=== PATIENT | male | born 1990 | race Caucasian/White ===

== ENCOUNTER 2017-12-10 10:00 | Outpatient (CLI) | payer OTHER ==
--- NOTE | 2017-12-10 13:35 | MRI ---
EXAM: MRI right ankle/hind-foot without contrast. HISTORY: Right ankle pain. Fractured fibula 05/30/2017. No surgery.. TECHNIQUE: Using a local extremity coil on a high field strength magnet multiplanar multisequence ma gnet resonance imaging performed of the right hind to midfoot without intravenous or intra-articular gadolinium contrast. COMPARISON: Three-view plain film examination right ankle 06/29/2017. Three-view plain film examina tion right foot 06/29/2017. FINDINGS: The alignment of the right hind to midfoot shows no dislocation or joint subluxations. In tact Lisfranc ligament fibers. Ankle mortise symmetric. Talar dome within normal limit in morpholog y. There remains a well-defined coronal oblique fracture of the distal right fibula over the metaphy sis with extension into the ankle mortise. Near anatomic alignment. Associated bone marrow edema/re modeling persists. Associated injury to the anterior tibiofibular ligament with the posterior tibiof ibular ligament and transverse ligament/tibial slip intact. Distal interosseous membrane partially vi sualized and intact. Preservation of fat within the sinus tarsi. Low-lying soleus. Distal Achilles tendon intact with so me mild distal Achilles tendinosis/peritendinitis. The visualized plantar fascia intact and of nimco l signal intensity and morphology. Anterior compartment tendons intact. Within the lateral compartment both the peroneus brevis and peroneus longus tendons intact with some tendinosis. No definitive tenosynovitis or peroneal tendon subluxation on the static examination. I ntact posterior talofibular ligament fibers. Prior sprain/partial tearing anterior talofibular ligam ent. Intact calcaneofibular ligament fibers. Within the medial compartment posterior tibial, flexor digitorum longus and flexor hallucis longus te ndons intact and within normal limits signal intensity and morphology. Deltoid ligament intact. Cou rse of the tarsal tunnel within normal limit.. IMPRESSION: Persistent well-defined coronal oblique fracture of the distal right fibula over the met aphysis with extension into the ankle mortise. Near anatomic alignment. Associated bone marrow kirstin a/remodeling persists. Associated injury to the anterior tibiofibular ligament. Prior sprain/partia l tearing anterior talofibular ligament. Distal Achilles mild tendinosis/peritendinitis. Peroneal tendinosis.
== END 2017-12-10 10:01 | disposition home or self-care (01) ==
LOC: RAD 10:00
PROVIDERS: ATTEND Nurse Practitioner Family
DX: M25.571 Pain in right ankle and joints of right foot (principal)